=== PATIENT | female | born 1950 | race Caucasian/White ===

== ENCOUNTER → 2016-10-07 | Outpatient (CLI) | payer MEDICARE ==
--- NOTE | 2016-10-08 09:05 | MM ---
Reason for exam: screening (asymptomatic). Last mammogram was performed 1 year ago. History: Patient is postmenopausal. Family history of breast cancer in sister at age 60 and breast cancer in paternal grandmother. Took hormonal contraceptives for 8 years. Took estrogen for 3 years. Physical Findings: A clinical breast exam by your physician is recommended on an annual basis and results should be correlated with mammographic findings. MG 3D Screening Mammo W/Cad Bilateral CC and MLO view(s) were taken. Prior study comparison: October 06, 2015, bilateral MG 3d screening mammo w/cad. October 02, 2014, bilateral MG screening mammo w CAD. There are scattered fibroglandular densities. Finding: There are typically benign calcifications. No significant changes in finding since October 06, 2015 and October 02, 2014. ASSESSMENT: Benign, BI-RAD 2 RECOMMENDATION: Routine screening mammogram of both breasts in 1 year.
== END | disposition home or self-care (01) ==
LOC: RADMAMWWP 11:24
PROVIDERS: ATTEND Family Medicine
DX: Z12.31 Encounter for screening mammogram for malignant neoplasm of breast (principal)
CPT/HCPCS: 77063; G0202

== ENCOUNTER → 2017-10-11 | Outpatient (CLI) | payer MEDICARE ==
--- NOTE | 2017-10-12 12:34 | MM ---
Reason for exam: screening (asymptomatic). Last mammogram was performed 1 year ago. History: Patient is postmenopausal. Family history of breast cancer in sister at age 60 and breast cancer in paternal grandmother. Took hormonal contraceptives for 8 years. Took estrogen for 3 years. Physical Findings: A clinical breast exam by your physician is recommended on an annual basis and results should be correlated with mammographic findings. MG 3D Screening Mammo W/Cad Bilateral CC and MLO view(s) were taken. Prior study comparison: October 07, 2016, bilateral MG 3d screening mammo w/cad. October 06, 2015, bilateral MG 3d screening mammo w/cad. There are scattered fibroglandular densities. Stable benign calcifications. There is no discrete abnormality. No significant changes when compared with prior studies. ASSESSMENT: Benign, BI-RAD 2 RECOMMENDATION: Routine screening mammogram of both breasts in 1 year.
== END | disposition home or self-care (01) ==
LOC: RADMAMWWP 16:49
PROVIDERS: ATTEND Family Medicine
DX: Z12.31 Encounter for screening mammogram for malignant neoplasm of breast (principal)
CPT/HCPCS: 77063; 77067

== ENCOUNTER → 2018-11-22 | Outpatient (CLI) | payer MEDICARE ==
--- NOTE | 2018-11-24 07:41 | MM ---
Reason for exam: screening (asymptomatic). Last mammogram was performed 1 year and 1 month ago. History: Patient is postmenopausal. Family history of breast cancer in sister at age 60 and breast cancer in paternal grandmother. Took hormonal contraceptives for 8 years. Took estrogen for 3 years. Physical Findings: A clinical breast exam by your physician is recommended on an annual basis and results should be correlated with mammographic findings. MG 3D Screening Mammo W/Cad Bilateral CC and MLO view(s) were taken. Prior study comparison: October 11, 2017, bilateral MG 3d screening mammo w/cad. October 07, 2016, bilateral MG 3d screening mammo w/cad. There are scattered fibroglandular densities. Benign appearing bilateral calcifications. No suspicious abnormality. No significant changes when compared with prior studies. ASSESSMENT: Benign, BI-RAD 2 RECOMMENDATION: Routine screening mammogram of both breasts in 1 year.
== END | disposition home or self-care (01) ==
LOC: RADMAMWWP 12:29
PROVIDERS: ATTEND Family Medicine
DX: Z12.31 Encounter for screening mammogram for malignant neoplasm of breast (principal)
CPT/HCPCS: 77063; 77067

== ENCOUNTER → 2019-12-12 | Outpatient (CLI) | payer MEDICARE ==
--- NOTE | 2019-12-13 14:43 | MM ---
Reason for exam: screening (asymptomatic). Last mammogram was performed 1 year and 1 month ago. History: Patient is postmenopausal. Family history of breast cancer in sister at age 60 and breast cancer in paternal grandmother. Took hormonal contraceptives for 8 years. Took estrogen for 3 years. Physical Findings: A clinical breast exam by your physician is recommended on an annual basis and results should be correlated with mammographic findings. MG 3D Screening Mammo W/Cad Bilateral CC and MLO view(s) were taken. Prior study comparison: November 22, 2018, bilateral MG 3d screening mammo w/cad. October 11, 2017, bilateral MG 3d screening mammo w/cad. There are scattered fibroglandular densities. Focal asymmetry right breast is stable. No significant changes when compared with prior studies. ASSESSMENT: Benign, BI-RAD 2 RECOMMENDATION: Routine screening mammogram of both breasts in 1 year.
== END | disposition home or self-care (01) ==
LOC: RADMAMWWP 16:11
PROVIDERS: ATTEND Family Medicine
DX: Z12.31 Encounter for screening mammogram for malignant neoplasm of breast (principal)
CPT/HCPCS: 77063; 77067

== ENCOUNTER → 2020-12-12 | Outpatient (CLI) | payer MEDICARE ==
--- NOTE | 2020-12-15 09:21 | MM ---
Reason for exam: screening (asymptomatic). Last mammogram was performed 1 year ago. History: Patient is postmenopausal. Family history of breast cancer in sister at age 60 and breast cancer in paternal grandmother. Took hormonal contraceptives for 8 years. Took estrogen for 3 years. Physical Findings: A clinical breast exam by your physician is recommended on an annual basis and results should be correlated with mammographic findings. MG 3D Screening Mammo W/Cad Bilateral CC and MLO view(s) were taken. Prior study comparison: December 12, 2019, bilateral MG 3d screening mammo w/cad. November 22, 2018, bilateral MG 3d screening mammo w/cad. There are scattered fibroglandular densities. Stable benign calcifications. There is no discrete abnormality. No significant changes when compared with prior studies. ASSESSMENT: Benign, BI-RAD 2 RECOMMENDATION: Routine screening mammogram of both breasts in 1 year.
== END | disposition home or self-care (01) ==
LOC: RADMAMWWP 09:54
PROVIDERS: ATTEND Family Medicine
DX: Z12.31 Encounter for screening mammogram for malignant neoplasm of breast (principal); Z78.0 Asymptomatic menopausal state; Z80.3 Family history of malignant neoplasm of breast
CPT/HCPCS: 77063; 77067

== ENCOUNTER → 2021-12-14 | Outpatient (CLI) | payer MEDICARE ==
--- NOTE | 2021-12-15 08:52 | MM ---
Reason for Exam: Screening (asymptomatic). Last screening mammogram was performed 12 month(s) ago. Patient History: Menarche at age 8. First Full-Term at age 19. Left ovary removed at age 47. Right ovary removed at age 47. Hysterectomy at age 47. Postmenopausal. Patient used Estrogen for 3 years. Patient used Hormonal Contraceptives for 8 years. Paternal grandmother had breast cancer. Sister had breast cancer, age 60. Risk Values: Archana 5 year model risk: 3.7%. NCI Lifetime model risk: 9.4%. Prior Study Comparison: 11/22/2018 Bilateral Screening Mammogram, [facility]. 12/12/2019 Bilateral Screening Mammogram, [facility]. 12/12/2020 Bilateral Screening Mammogram, [facility]. Tissue Density: There are scattered fibroglandular densities. Findings: Analyzed By CAD. There is no suspicious group of microcalcifications or new suspicious mass in either breast. Stable benign calcifications. No significant change from prior exams. Overall Assessment: Benign, BI-RAD 2 Management: Screening Mammogram of both breasts in 1 year. A clinical breast exam by your physician is recommended on an annual basis and results should be correlated with mammographic findings. Electronically signed and approved by: Zhang Hall D.O.
== END | disposition home or self-care (01) ==
LOC: RADMAMWWP 10:11
PROVIDERS: ATTEND Family Medicine
DX: Z12.31 Encounter for screening mammogram for malignant neoplasm of breast (principal); Z78.0 Asymptomatic menopausal state; Z80.3 Family history of malignant neoplasm of breast
CPT/HCPCS: 77063; 77067

== ENCOUNTER → 2022-12-15 | Outpatient (CLI) | payer MEDICARE ==
--- NOTE | 2022-12-16 10:09 | MM ---
Reason for Exam: Screening (asymptomatic). Last screening mammogram was performed 12 month(s) ago. Patient History: Menarche at age 8. First Full-Term at age 19. Left ovary removed at age 47. Right ovary removed at age 47. Hysterectomy at age 47. Postmenopausal. Patient used Estrogen for 3 years. Patient used Hormonal Contraceptives for 8 years. Paternal grandmother had breast cancer. Sister had breast cancer, age 60. Risk Values: Archana 5 year model risk: 3.7%. NCI Lifetime model risk: 8.9%. Prior Study Comparison: 12/12/2019 Bilateral Screening Mammogram, [facility]. 12/12/2020 Bilateral Screening Mammogram, [facility]. 12/14/2021 Bilateral MG 3D screening mammo w/cad, [facility]. Tissue Density: There are scattered fibroglandular densities. Findings: Analyzed By CAD. There is no suspicious group of microcalcifications or new suspicious mass in either breast. Benign bilateral calcifications. Overall Assessment: Benign, BI-RAD 2 Management: Screening Mammogram of both breasts in 1 year. . Patient should continue monthly self-breast exams. A clinical breast exam by your physician is recommended on an annual basis. This exam should not preclude additional follow-up of suspicious palpable abnormalities. Note on Archana scores and lifetime risk: 1. A Archana score greater than 3% is considered moderate risk. If this is the case, consider specialist referral to assess eligibility for a risk reducing agent. 2. If overall lifetime risk for the development of breast cancer is 20% or higher, the patient may qualify for future screening with alternating mammogram and breast MRI. Electronically signed and approved by: Armando Zapata M.D. Radiologis
== END | disposition home or self-care (01) ==
LOC: RADMAMWWP 10:58
PROVIDERS: ATTEND Family Medicine
DX: Z12.31 Encounter for screening mammogram for malignant neoplasm of breast (principal); Z80.3 Family history of malignant neoplasm of breast; Z78.0 Asymptomatic menopausal state
CPT/HCPCS: 77063; 77067

== ENCOUNTER 2023-10-18 10:07 | Observation (INO) | payer MEDICARE ==
--- NOTE | 2023-10-18 11:20 | XR ---
EXAMINATION TYPE: XR chest 2V DATE OF EXAM: 10/18/2023 COMPARISON: NONE TECHNIQUE: PA and lateral views submitted. HISTORY: Pain FINDINGS: The lungs are clear and there is no pneumothorax, pleural effusion, or focal pneumonia. Heart size normal and no overt failure. Osseous structures demonstrate hypertrophic and degenerative changes of the spine. Linear scarring or atelectasis left lung base. IMPRESSION: 1. No acute process.
--- NOTE | 2023-10-18 11:24 | ED ---
General Adult HPI - General Chief complaint: Chest Pain Stated complaint: SOB/Dizziness Time Seen by Provider: 10/18/23 10:16 Source: patient Mode of arrival: ambulatory Limitations: no limitations - History of Present Illness Initial comments: Dictation was produced using [employer] dictation software. please excuse any grammatical, word or spelling errors. Chief Complaint: 73-year-old female past medical history of osteoarthritis and thyroid disease presents to the ER for chest pain History of Present Illness: Patient 73-year-old female she states that she is having some chest heaviness. Patient states that the symptoms are nonradiating. Not associate with diaphoresis or nausea. She does have extensive family history. States that 2 of her brothers both had heart attacks. The ROS documented in this emergency department record has been reviewed and confirmed by me. Those systems with pertinent positive or negative responses have been documented in the HPI. All other systems are other negative and/or noncontributory. - Related Data Home Medications Medication Instructions Recorded Confirmed Acetaminophen [Tylenol Arthritis] 1,300 mg PO BID 10/18/23 10/18/23 Atorvastatin [Lipitor] 40 mg PO HS 10/18/23 10/18/23 Celecoxib [CeleBREX] 200 mg PO DAILY 10/18/23 10/18/23 Escitalopram [Lexapro] 20 mg PO DAILY 10/18/23 10/18/23 Levothyroxine Sodium [Synthroid] 88 mcg PO DAILY 10/18/23 10/18/23 Loratadine [Claritin] 10 mg PO DAILY 10/18/23 10/18/23 Pregabalin [Lyrica] 50 mg PO BID 10/18/23 10/18/23 traMADol HCL 100 mg PO BID PRN 10/18/23 10/18/23 traZODone HCL [Desyrel] 50 mg PO HS 10/18/23 10/18/23 Allergies Allergy/AdvReac Type Severity Reaction Status Date / Time meclofenamic acid Allergy Rash/Hives Verified 10/18/23 11:16 [From Meclomen] Review of Systems ROS Statement: Those systems with pertinent positive or pertinent negative responses have been documented in the HPI. ROS Other: All systems not noted in ROS Statement are negative. Past Medical History Past Medical History: Osteoarthritis (OA), Thyroid Disorder History of Any Multi-Drug Resistant Organisms: None Reported Additional Past Surgical History / Comment(s): right knee replacement, right shoulder repair, knuckle replacement Past Psychological History: No Psychological Hx Reported Smoking Status: Never smoker Past Alcohol Use History: None Reported Past Drug Use History: None Reported General Exam - General Exam Comments Initial Comments: PHYSICAL EXAM: General Impression: Alert and oriented x3, not in acute distress HEENT: Normocephalic atraumatic, extra-ocular movements intact, pupils equal and reactive to light bilaterally, mucous membranes moist. Cardiovascular: Heart regular rate and rhythm Chest: Able to complete full sentences, no retractions, no tachypnea Abdomen: abdomen soft, non-tender, non-distended, no organomegaly Musculoskeletal: Pulses present and equal in all extremities, no peripheral ed marcela Motor: no focal deficits noted Neurological: CN II-XII grossly intact, no focal motor or sensory deficits noted Skin: Intact with no visualized rashes Psych: Normal affect and mood Limitations: no limitations Course Vital Signs 10/18/23 10/18/23 10/18/23 10:08 10:29 12:52 Temperature 98.1 F Pulse Rate 65 51 L Pulse Rate [ 56 L Chain Builder ] Respiratory 18 18 Rate Blood Pressure 137/67 138/83 O2 Sat by Pulse 97 Oximetry EKG Findings - EKG Comments: EKG Findings:: My EKG interpretation: Ventricular rate 52, sinus bradycardia,. 160, cures 86, QTc 413. No ME prolongation, no QTC prolongation, no ST or T-wave changes noted. Overall, this EKG is unremarkable Medical Decision Making - Medical Decision Making Was pt. sent in by a medical professional or institution (, PA, SITE MANAGER, urgent care, hospital, or senior care...) When possible be specific @ -No Did you speak to anyone other than the patient for history (EMS, parent, family, police, friend...)? What history was obtained from this source @ -No Did you review nursing and triage notes (agree or disagree)? Why? @ -I reviewed and agree with nursing and triage notes Were old charts reviewed (outside hosp., previous admission, EMS record, old EKG, old radiological studies, urgent care reports/EKG's, senior care records)? Report findings @ -No old charts were reviewed Differential Diagnosis (chest pain, altered mental status, abdominal pain women, abdominal pain men, vaginal bleeding, musculoskeletal, weakness, fever, dyspnea, syncope, headache, dizziness, GI bleed, back pain, seizure, CVA, palpatations, mental health)? @ -Differential Chest Pain: Stable Angina, Unstable Angina, STEMI, NSTEMI Aortic Dissection, Pneumothorax, Musculoskeletal, Esophageal Spasm GERD, Cholecystitis, Pancreatitis, Zoster, this is not meant to be an all-inclusive list. EKG interpreted by me (3pts min.). @ -See above X-rays interpreted by me (1pt min.). @ -Chest x-ray shows no acute processes CT interpreted by me (1pt min.). @ -None done U/S interpreted by me (1pt. min.). @ -None done What testing was considered but not performed or refused? (CT, X-rays, U/S, labs)? Why? @ -None What meds were considered but not given or refused? Why? @ -None Was smoking cessation discussed for >3mins.? @ -No Were there social determinants of health that impacted care today? How? (Homelessness, low income, unemployed, alcoholism, drug addiction, transportation, low edu. Level, literacy, decrease access to med. care, penitentiary, rehab)? @ -No Was there de-escalation of care discussed even if they declined (Discuss DNR or withdrawal of care, Hospice)? DNR status @ -No What co-morbidities impacted this encounter? (DM, HTN, Smoking, COPD, CAD, Cancer, CVA, ARF, Chemo, Hep., AIDS, mental health diagnosis, sleep apnea, morbid obesity)? @ -None Was patient admitted / discharged? Hospital course, mention meds given and route, prescriptions, significant lab abnormalities, going to OR and other pertinent info. @ -73-year-old female with chest heaviness. Vital signs stable. EKG is unremarkable. Patient has significant family history. Labs are unremarkable. Disposition options were discussed she is agreeable with observation admission with consultation cardiology. Patient given aspirin. Did you discuss the management of the patient with other professionals (professionals i.e. , PA, SITE MANAGER, lab, RT, psych nurse, social research assistant, rescue boat operator, teacher, chief credit officer, rn case mgr)? Give summary @ -Case discussed with hospitalist for admission Was critical care preformed (if so, how long)? @ -No Undiagnosed new problem with uncertain prognosis? @ -No Drug Therapy requiring intensive monitoring for toxicity (Heparin, Nitro, Insulin, Cardizem)? @ -No Were any procedures done? @ -No Diagnosis/symptom? Acute, or Chronic, or Acute on Chronic? Uncomplicated (without systemic symptoms) or Complicated (systemic symptoms)? @ -Chest pain Side effects of treatment? @ -No Exacerbation, Progression, or Severe Exacerbation? @ -No Poses a threat to life or bodily function? How? (Chest pain, [place], [place], pneumonia, PE, COPD, DKA, ARF, appy, cholecystitis, CVA, Diverticulitis, Homicidal, Suicidal, threat to staff... and all critical care pts) @ -yes - Lab Data Result diagrams: 10/18/23 10:37 10/18/23 12:20 Lab Results 10/18/23 10/18/23 10/18/23 Range/Units 10:37 10:37 12:20 WBC 7.6 (3.8-10.6) k/uL RBC 4.33 (3.80-5.40) m/uL Hgb 13.5 (11.4-16.0) gm/dL Hct 42.2 (34.0-46.0) % MCV 97.5 (80.0-100.0) fL MCH 31.1 (25.0-35.0) pg MCHC 31.9 (31.0-37.0) g/dL RDW 12.8 (11.5-15.5) % Plt Count 388 (150-450) k/uL MPV 7.3 Neutrophils % 69 % Lymphocytes % 21 % Monocytes % 4 % Eosinophils % 3 % Basophils % 1 % Neutrophils # 5.2 (1.3-7.7) k/uL Lymphocytes # 1.6 (1.0-4.8) k/uL Monocytes # 0.3 (0-1.0) k/uL Eosinophils # 0.3 (0-0.7) k/uL Basophils # 0.1 (0-0.2) k/uL Hypochromasia Slight PT 10.1 (10.0-12.5) sec INR 0.9 (<1.2) APTT 22.9 (22.0-30.0) sec Sodium 140 (137-145) mmol/L Potassium 4.9 (3.5-5.1) mmol/L Chloride 111 H (98-107) mmol/L Carbon Dioxide 23 (22-30) mmol/L Anion Gap 6 mmol/L BUN 23 H (7-17) mg/dL Creatinine 0.56 (0.52-1.04) mg/dL Est GFR (CKD-EPI)AfAm >90 (>60 ml/min/1.73 sqM) Est GFR (CKD-EPI)NonAf >90 (>60 ml/min/1.73 sqM) Glucose 89 (74-99) mg/dL Calcium 8.9 (8.4-10.2) mg/dL Magnesium 2.2 (1.6-2.3) mg/dL Total Bilirubin 0.6 (0.2-1.3) mg/dL AST 36 (14-36) U/L ALT 22 (4-34) U/L Alkaline Phosphatase 65 (38-126) U/L Troponin I (0.000-0.034) ng/mL Total Protein 6.5 (6.3-8.2) g/dL Albumin 4.0 (3.5-5.0) g/dL 10/18/23 Range/Units 12:20 WBC (3.8-10.6) k/uL RBC (3.80-5.40) m/uL Hgb (11.4-16.0) gm/dL Hct (34.0-46.0) % MCV (80.0-100.0) fL MCH (25.0-35.0) pg MCHC (31.0-37.0) g/dL RDW (11.5-15.5) % Plt Count (150-450) k/uL MPV Neutrophils % % Lymphocytes % % Monocytes % % Eosinophils % % Basophils % % Neutrophils # (1.3-7.7) k/uL Lymphocytes # (1.0-4.8) k/uL Monocytes # (0-1.0) k/uL Eosinophils # (0-0.7) k/uL Basophils # (0-0.2) k/uL Hypochromasia PT (10.0-12.5) sec INR (<1.2) APTT (22.0-30.0) sec Sodium (137-145) mmol/L Potassium (3.5-5.1) mmol/L Chloride (98-107) mmol/L Carbon Dioxide (22-30) mmol/L Anion Gap mmol/L BUN (7-17) mg/dL Creatinine (0.52-1.04) mg/dL Est GFR (CKD-EPI)AfAm (>60 ml/min/1.73 sqM) Est GFR (CKD-EPI)NonAf (>60 ml/min/1.73 sqM) Glucose (74-99) mg/dL Calcium (8.4-10.2) mg/dL Magnesium (1.6-2.3) mg/dL Total Bilirubin (0.2-1.3) mg/dL AST (14-36) U/L ALT (4-34) U/L Alkaline Phosphatase (38-126) U/L Troponin I <0.012 (0.000-0.034) ng/mL Total Protein (6.3-8.2) g/dL Albumin (3.5-5.0) g/dL Disposition Clinical Impression: Chest pain Disposition: ADMITTED IP TO THIS HOSP Condition: Fair Referrals: Park Ramos DO [Primary Care Provider] - 1-2 days Decision Time: 13:00
[2023-10-18 11:26] LABS: Basophils # (A) 0.1 k/uL (0-0.2); Basophils % (A) 1 %; Eosinophils # (A) 0.3 k/uL (0-0.7); Eosinophils % (A) 3 %; HCT 42.2 % (34.0-46.0); HGB 13.5 gm/dL (11.4-16.0); Hypochromasia Slight; Lymphocytes # (A) 1.6 k/uL (1.0-4.8); Lymphocytes % (A) 21 %; MCH 31.1 pg (25.0-35.0); MCHC 31.9 g/dL (31.0-37.0); MCV 97.5 fL (80.0-100.0); Mean Platelet Volume 7.3; Monocytes # (A) 0.3 k/uL (0-1.0); Monocytes % (A) 4 %; Neutrophils # (A) 5.2 k/uL (1.3-7.7); Neutrophils % (A) 69 %; Platelet Count 388 k/uL (150-450); RBC 4.33 m/uL (3.80-5.40); RDW 12.8 % (11.5-15.5); WBC 7.6 k/uL (3.8-10.6)
[2023-10-18 12:11] LABS: INR 0.9 (<1.2); Partial Thromboplastin Time 22.9 sec (22.0-30.0); Prothrombin Time 10.1 sec (10.0-12.5)
[2023-10-18 13:05] LABS: ALT 22 U/L (4-34); AST 36 U/L (14-36); African American GFR (CKD) >90 (>60 ml/min/1.73 sqM); Alkaline Phosphatase 65 U/L (38-126); Anion Gap 6 mmol/L; Blood Urea Nitrogen 23 mg/dL (7-17); Calcium 8.9 mg/dL (8.4-10.2); Carbon Dioxide 23 mmol/L (22-30); Chloride 111 mmol/L (98-107); Glucose 89 mg/dL (74-99); Magnesium 2.2 mg/dL (1.6-2.3); Non-African American GFR(CKD) >90 (>60 ml/min/1.73 sqM); Sodium 140 mmol/L (137-145); Total Bilirubin 0.6 mg/dL (0.2-1.3); Total Protein 6.5 g/dL (6.3-8.2)
[2023-10-18 13:11] LABS: Potassium 4.9 mmol/L (3.5-5.1)
[2023-10-18] MEDS ORDERED: NITROGLYCERIN SL TABS 0.4 MG TAB SUBLINGUAL PRN (13:33)
[2023-10-18] MEDS: ASPIRIN 81 MG PO STA (14:08)
[2023-10-18] MEDS ORDERED: traMADol 50 MG TAB PO PRN (14:42)
--- NOTE | 2023-10-18 14:45 | P.HPIM ---
History of Present Illness H&P Date: 10/18/23 History of present illness; patient 73-year-old lady with past medical significant for hyperlipidemia, hypothyroidism presented to ER because of chest pain. Patient stated that she was all right this morning when she woke up with chest pain that was central location, nonradiating, pressure-like, no aggravating or relieving factor associated with chest pain. Patient denies any shortness of breath. There is no complaint of orthopnea or PND at the time. Patient was complaining of dizziness. Because of chest pain, patient came to the ER Initial lab work done in the ER showed WBC 7.6, hemoglobin 13.5, platelet count 388, sodium 140, potassium 4.9, BUN 23, creatinine 0.56, glucose 89, calcium 8.9, AST 36, ALT 22, troponin 0.012 EKG done in the ER showed heart rate of52 , no ST segment elevation or depression seen, no T-wave inversions seen. Chest x-ray done in the ER showed no acute cardiopulmonary process Patient admitted to internal medicine service REVIEW OF SYSTEMS: CONSTITUTIONAL: No fever, no malaise, no fatigue. HEENT: No recent visual problems or hearing problems. Denied any sore throat. CARDIOVASCULAR: As mentioned above PULMONARY: As mentioned above GASTROINTESTINAL: No diarrhea, no nausea, no vomiting, no abdominal pain. NEUROLOGICAL: No headaches, no weakness, no numbness. HEMATOLOGICAL: Denies any bleeding or petechiae. GENITOURINARY: Denies any burning micturition, frequency, or urgency. MUSCULOSKELETAL/RHEUMATOLOGICAL: Denies any joint pain, swelling, or any muscle pain. ENDOCRINE: Denies any polyuria or polydipsia. The rest of the 14-point review of systems is negative. PHYSICAL EXAMINATION: GENERAL: The patient is alert and oriented x3, not in any acute distress. Well developed, well nourished. HEENT: Pupils are round and equally reacting to light. EOMI. No scleral icterus. No conjunctival pallor. Normocephalic, atraumatic. No pharyngeal erythema. No thyromegaly. CARDIOVASCULAR: S1 and S2 present. No murmurs, rubs, or gallops. PULMONARY: Chest is clear to auscultation, no wheezing or crackles. ABDOMEN: Soft, nontender, nondistended, normoactive bowel sounds. No palpable organomegaly. MUSCULOSKELETAL: No joint swelling or deformity. EXTREMITIES: No cyanosis, clubbing, or pedal edema. NEUROLOGICAL: Gross neurological examination did not reveal any focal deficits. SKIN: No rashes. Assessment and plan Chest pain, rule out acute coronary syndrome Hypothyroidism Hyperlipidemia Depression Monitor vital signs Monitor CBC Monitor CMP Continue telemetry monitoring Ordered serial troponin Ordered serial EKGs Ordered 2D echo Order D-dimer Ordered lipid panel ordered HbA1c level Resume home medicine consult cardiology Labs and medication were reviewed.. Continue same treatment. Continue with symptomatic treatment. Resume home medication. Monitor labs and vitals. DVT and GI prophylaxis. Further recommendations as per clinical course of the patient Dictation was produced using [employer] dictation software. please excuse any grammatical, word or spelling errors. Past Medical History Past Medical History: Osteoarthritis (OA), Thyroid Disorder History of Any Multi-Drug Resistant Organisms: None Reported Additional Past Surgical History / Comment(s): right knee replacement, right shoulder repair, knuckle replacement Past Psychological History: No Psychological Hx Reported Smoking Status: Never smoker Past Alcohol Use History: None Reported Past Drug Use History: None Reported Medications and Allergies Home Medications Medication Instructions Recorded Confirmed Type Acetaminophen [Tylenol Arthritis] 1,300 mg PO BID 10/18/23 10/18/23 History Atorvastatin [Lipitor] 40 mg PO HS 10/18/23 10/18/23 History Celecoxib [CeleBREX] 200 mg PO DAILY 10/18/23 10/18/23 History Escitalopram [Lexapro] 20 mg PO DAILY 10/18/23 10/18/23 History Levothyroxine Sodium [Synthroid] 88 mcg PO DAILY 10/18/23 10/18/23 History Loratadine [Claritin] 10 mg PO DAILY 10/18/23 10/18/23 History Pregabalin [Lyrica] 50 mg PO BID 10/18/23 10/18/23 History traMADol HCL 100 mg PO BID PRN 10/18/23 10/18/23 History traZODone HCL [Desyrel] 50 mg PO HS 10/18/23 10/18/23 History Allergies Allergy/AdvReac Type Severity Reaction Status Date / Time meclofenamic acid Allergy Rash/Hives Verified 10/18/23 11:16 [From Meclomen] Physical Exam Vitals: Vital Signs Temp Pulse Pulse Resp BP Pulse Ox 10/18/23 12:52 51 L 18 138/83 10/18/23 10:29 56 L 10/18/23 10:08 98.1 F 65 18 137/67 97 Intake and Output 10/17/23 10/18/23 10/18/23 22:59 06:59 14:59 Other: Weight 81.647 kg Results CBC & Chem 7: 10/18/23 10:37 10/18/23 12:20 Labs: Abnormal Lab Results - Last 24 Hours (Table) 10/18/23 Range/Units 12:20 Chloride 111 H (98-107) mmol/L BUN 23 H (7-17) mg/dL
--- NOTE | 2023-10-18 17:28 | CA ---
Transthoracic Echo Report Name: Chel Kennedy Age: 73 Gender: F : 1950 Exam Date: 10/18/2023 15:30 Exam Location: [facility] Ht (in): 60 Wt (lb): 180 Ordering Physician: Trevin Arshad MD Attending/Referring Phys: Oak Tanner Sunni Vinson RDCS Procedure CPT: Indications: Chest Pain Cardiac Hx: Technical Quality: Good Contrast 1: Total Dose (mL): Contrast 2: Total Dose (mL): MEASUREMENTS (Male / Female) Normal Values 2D ECHO LV Diastolic Diameter PLAX 4.3 cm 4.2 - 5.9 / 3.9 - 5.3 cm LV Systolic Diameter PLAX 2.6 cm IVS Diastolic Thickness 1.0 cm 0.6 - 1.0 / 0.6 - 0.9 cm LVPW Diastolic Thickness 0.9 cm 0.6 - 1.0 / 0.6 - 0.9 cm LV Relative Wall Thickness 0.4 RV Internal Dim ED PLAX 3.0 cm LA Systolic Diameter LX 4.1 cm 3.0 - 4.0 / 2.7 - 3.8 cm LV Diastolic Volume MOD 4C 101.0 cm??? LV Systolic Volume MOD 4C 42.5 cm??? LV Ejection Fraction MOD 4C 58.0 % LV Cardiac Index MOD 4C 1911.5 cm???/min???m??? LV Diastolic Length 4C 7.5 cm LV Systolic Length 4C 6.0 cm LV Diastolic Volume MOD 2C 79.1 cm??? LV Systolic Volume MOD 2C 31.4 cm??? LV Ejection Fraction MOD 2C 60.3 % LV Cardiac Index MOD 2C 1555.9 cm???/min???m??? LV Diastolic Length 2C 7.0 cm LV Systolic Length 2C 5.4 cm LA Volume 45.2 cm??? 18 - 58 / 22 - 52 cm??? LA Volume Index 23.8 cm???/m??? 16 - 28 cm???/m??? M-MODE Aortic Root Diameter MM 3.0 cm AV Cusp Separation MM 1.8 cm DOPPLER AV Peak Velocity 140.5 cm/s AV Peak Gradient 7.9 mmHg AV Mean Velocity 91.0 cm/s AV Mean Gradient 3.8 mmHg AV Velocity Time Integral 33.2 cm MV Area PHT 3.6 cm??? Mitral E Point Velocity 96.6 cm/s Mitral A Point Velocity 107.4 cm/s Mitral E to A Ratio 0.9 MV Deceleration Time 212.4 ms TR Peak Velocity 215.5 cm/s TR Peak Gradient 18.6 mmHg Right Ventricular Systolic Press 23.2 mmHg FINDINGS Left Ventricle Left ventricular ejection fraction is estimated at 55-60 %. Left ventricular cavity size normal. Left ventricular wall thickness normal. Normal left ventricular wall motion. Right Ventricle Normal right ventricular size and function. Right ventricular systolic pressure within normal limits. Right Atrium Normal right atrial size. No right atrial thrombus or mass seen. Left Atrium Mildly increased left atrial diameter. No left atrial thrombus or mass present. Mitral Valve Mitral valve thickened. Mitral annular calcification. Trace mitral regurgitation. Aortic Valve Trileaflet aortic valve. Thickened aortic valve without stenosis. No aortic regurgitation. Tricuspid Valve Structurally normal tricuspid valve. Trace to mild tricuspid regurgitation. Pulmonic Valve Structurally normal pulmonic valve. No pulmonic regurgitation. Pericardium No pericardial effusion. No pleural effusion. Aorta Normal size aortic root and proximal ascending aorta. CONCLUSIONS Normal LV function Previewed by: Dr. Gino De Leon MD (Electronically Signed) Final Date: 18 October 2023 17:27
[2023-10-18] MEDS: ATORVASTATIN 40 MG TAB PO SCH (20:25)
[2023-10-18] MEDS: PREGABALIN 50 MG CAP PO SCH (20:25)
[2023-10-18] MEDS: traZODone HCL 50 MG TAB PO SCH (20:25)
[2023-10-19] MEDS: LEVOTHYROXINE 88 MCG TAB PO SCH (05:05)
[2023-10-19] MEDS ORDERED: DOBUTamine DRIP for NUC MED 500 MG in DEXTROSE/WATER 1 250ML.BAG IV PRN (08:01)
[2023-10-19 08:31] LABS: Basophils # (A) 0.07 X 10*3/uL (0.00-0.10); Basophils % (A) 0.7 %; Eosinophils # (A) 0.31 X 10*3/uL (0.04-0.35); Eosinophils % (A) 3.3 %; HCT 38.4 % (37.2-46.3); HGB 12.2 g/dL (12.0-15.0); Lymphocytes # (A) 2.77 X 10*3/uL (0.90-5.00); Lymphocytes % (A) 29.3 %; MCH 30.5 pg (27.0-32.0); MCHC 31.8 g/dL (32.0-37.0); Mean Platelet Volume 10.1 FL (9.5-12.2); Monocytes # (A) 0.72 X 10*3/uL (0.20-1.00); Monocytes % (A) 7.6 %; NRBC Per 100 WBC 0 X 10*3/uL (0.00-0.01); Neutrophils # (A) 5.55 X 10*3/uL (1.80-7.70); Neutrophils % (A) 58.8 %; Platelet Count 338 X 10*3/uL (140-440); WBC 9.45 X 10*3/uL (4.50-10.00)
[2023-10-19] MEDS ORDERED: ASPIRIN 325 MG TAB PO SCH (09:00)
[2023-10-19 09:01] LABS: ALT 19 U/L (8-44); AST 24 U/L (13-35); Albumin 4.1 g/dL (3.8-4.9); Albumin/Globulin Ratio 1.78 Ratio (1.60-3.17); Alkaline Phosphatase 74 U/L (41-126); Blood Urea Nitrogen 24.8 mg/dL (9.0-27.0); Calcium 8.8 mg/dL (8.7-10.3); Carbon Dioxide 22.2 mmol/L (21.6-31.8); Chloride 107 mmol/L (96-109); Chol/HDL Ratio 4.47 Ratio; Globulin 2.3 g/dL (1.6-3.3); Glucose 104 mg/dL (70-110); LDL Cholesterol,Calculated 104.6 mg/dL (0.0-131.0); Potassium 4.5 mmol/L (3.5-5.5); Sodium 142 mmol/L (135-145); Total Bilirubin 0.2 mg/dL (0.3-1.2); Total Protein 6.4 g/dL (6.2-8.2)
[2023-10-19] MEDS: ASPIRIN 81 MG PO SCH (09:24)
--- NOTE | 2023-10-19 09:35 | P.CRDCN ---
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 She has a past medical history of hyperlipidemia, hypothyroidism. She denies history of hypertension or diabetes. She is a non-smoker. We have been asked to evaluate the patient for chest pain. She states she woke up with pressure and feeling lightheaded and thought she was having a panic attack. She states she still have some pressure in her chest. Blood pressure 148/71, heart rate 59, pulse ox 100% on room air. Just crossed testing options with the patient and if she is agreeable to move forward with stress test today. EKG: Normal sinus rhythm with no acute ST-T wave changes. Chest x-ray: No acute process Echocardiogram reveals normal LV function Laboratory studies: WBC 9.4, hemoglobin 12.2. Electrolytes are normal. BUN 24 creatinine 0.8. Troponin negative x 3. Triglycerides 168, cholesterol 178, LDL 104, HDL 39. Home cardiac medications: Atorvastatin 40 mg at bedtime, also on levothyroxine 88 mcg daily. Review Of Systems: At the time of my exam: CONSTITUTIONAL: Denies fever or chills. HEENT: Denies blurred vision, vision changes, or eye pain. Denies hemoptysis CARDIOVASCULAR: Denies chest pain. Denies orthopnea. Denies PND. Denies palpitations RESPIRATORY: Denies shortness of breath. GASTROINTESTINAL: Denies abdominal pain. Denies nausea or vomiting. HEMATOLOGIC: Denies bleeding disorders. GENITOURINARY: Denies any blood in urine. SKIN: Denies puritis. Denies rash. Physical examination: Gen: This is a 73-year-old female in no acute distress VS: reviewed HEENT: Head is atraumatic, normocephalic. Pupils equal, round. Sclerae is anicteric. NECK: Supple. No JVD. LUNGS: Clear to auscultation. No wheezes or rhonchi. No intercostal retractions. HEART: Regular rate and rhythm. No murmur. ABDOMEN: Soft No tenderness. EXTREMITIES: No pedal edema. No calf tenderness. NEUROLOGICAL: Patient is awake, alert and oriented x3. Assessment: Reproducible chest pain most likely musculoskeletal, acute coronary syndrome has been ruled out Hyperlipidemia Hypothyroidism Plan: Resume patient's home cardiac medications Obtain dobutamine stress test today If stress test is unremarkable, patient is cleared for discharge and may follow- up with Dr. Joelle De Leon in 4 weeks. Discussed with patient if testing comes back abnormal, we will plan for cardiac catheterization. Thank you kindly for this consultation. Nurse practitioner note has been reviewed, I agree with documented findings and plan of care. Patient was seen and examined. Past Medical History Past Medical History: Osteoarthritis (OA), Thyroid Disorder History of Any Multi-Drug Resistant Organisms: None Reported Additional Past Surgical History / Comment(s): right knee replacement, right shoulder repair, knuckle replacement Past Anesthesia/Blood Transfusion Reactions: No Reported Reaction Past Psychological History: No Psychological Hx Reported Smoking Status: Never smoker Past Alcohol Use History: None Reported Past Drug Use History: None Reported Medications and Allergies Home Medications Medication Instructions Recorded Confirmed Type Acetaminophen [Tylenol Arthritis] 1,300 mg PO BID 10/18/23 10/18/23 History Atorvastatin [Lipitor] 40 mg PO HS 10/18/23 10/18/23 History Celecoxib [CeleBREX] 200 mg PO DAILY 10/18/23 10/18/23 History Escitalopram [Lexapro] 20 mg PO DAILY 10/18/23 10/18/23 History Levothyroxine Sodium [Synthroid] 88 mcg PO DAILY 10/18/23 10/18/23 History Loratadine [Claritin] 10 mg PO DAILY 10/18/23 10/18/23 History Pregabalin [Lyrica] 50 mg PO BID 10/18/23 10/18/23 History traMADol HCL 100 mg PO BID PRN 10/18/23 10/18/23 History traZODone HCL [Desyrel] 50 mg PO HS 10/18/23 10/18/23 History Allergies Allergy/AdvReac Type Severity Reaction Status Date / Time meclofenamic acid Allergy Rash/Hives Verified 10/18/23 11:16 [From [facility]] Physical Exam Vitals: Vital Signs Temp Pulse Pulse Pulse Resp BP BP 10/19/23 07:27 97.8 F 59 L 16 148/71 10/19/23 02:00 97.5 F L 63 16 10/19/23 01:20 65 16 10/18/23 21:01 65 16 10/18/23 20:23 69 16 143/100 10/18/23 20:00 97.8 F 65 16 07/23/24 19:30 97.6 F 68 16 10/18/23 17:25 64 18 124/71 10/18/23 14:00 65 59 H 133/72 10/18/23 12:52 51 L 18 138/83 10/18/23 11:00 60 12 144/75 10/18/23 10:30 57 L 50 H 10/18/23 10:29 56 L 10/18/23 10:08 98.1 F 65 18 137/67 BP Pulse Ox 10/19/23 07:27 100 10/19/23 02:00 111/66 93 L 10/19/23 01:20 10/18/23 21:01 10/18/23 20:23 97 10/18/23 20:00 144/66 96 10/18/23 19:30 97 10/18/23 17:25 95 10/18/23 14:00 98 10/18/23 12:52 10/18/23 11:00 10/18/23 10:30 10/18/23 10:29 10/18/23 10:08 97 Intake and Output 10/18/23 10/19/23 10/19/23 22:59 06:59 14:59 Intake Total 120 Balance 120 Intake: Oral 120 Other: # Voids 1 1 Weight 81.647 kg Results 10/19/23 05:42 10/19/23 05:42 Cardiac Enzymes 10/18/23 10/18/23 10/18/23 Range/Units 12:20 12:20 15:57 AST 36 (14-36) U/L Troponin I <0.012 <0.012 (0.000-0.034) ng/mL 10/18/23 Range/Units 18:20 AST (14-36) U/L Troponin I <0.012 (0.000-0.034) ng/mL Coagulation 10/18/23 Range/Units 10:37 PT 10.1 (10.0-12.5) sec APTT 22.9 (22.0-30.0) sec CBC 10/18/23 Range/Units 10:37 WBC 7.6 (3.8-10.6) k/uL RBC 4.33 (3.80-5.40) m/uL Hgb 13.5 (11.4-16.0) gm/dL Hct 42.2 (34.0-46.0) % Plt Count 388 (150-450) k/uL Comprehensive Metabolic Panel 10/18/23 Range/Units 12:20 Sodium 140 (137-145) mmol/L Potassium 4.9 (3.5-5.1) mmol/L Chloride 111 H (98-107) mmol/L Carbon Dioxide 23 (22-30) mmol/L BUN 23 H (7-17) mg/dL Creatinine 0.56 (0.52-1.04) mg/dL Glucose 89 (74-99) mg/dL Calcium 8.9 (8.4-10.2) mg/dL AST 36 (14-36) U/L ALT 22 (4-34) U/L Alkaline Phosphatase 65 (38-126) U/L Total Protein 6.5 (6.3-8.2) g/dL Albumin 4.0 (3.5-5.0) g/dL Current Medications Generic Name Dose Route Start Last Admin Trade Name Freq PRN Reason Stop Dose Admin Aspirin 325 mg 10/19/23 09:00 Aspirin 325 Mg Tab PO DAILY JESSIKA Atorvastatin Calcium 40 mg 10/18/23 21:00 10/18/23 20:25 Atorvastatin 40 Mg Tab PO 40 mg HS JESSIKA Administration Escitalopram Oxalate 20 mg 10/19/23 09:00 Escitalopram 20 Mg Tab PO DAILY [facility] Levothyroxine Sodium 88 mcg 10/19/23 06:30 10/19/23 05:05 Levothyroxine 88 Mcg Tab PO 88 mcg 0630 JESSIKA Administration Loratadine 10 mg 10/19/23 09:00 Loratadine 10 Mg Tab PO DAILY JESSIKA Nitroglycerin 0.4 mg 10/18/23 13:33 Nitroglycerin Sl Tabs 0.4 Mg Tab SUBLINGUAL Q5M PRN Chest Pain Pregabalin 50 mg 10/18/23 21:00 10/18/23 20:25 Pregabalin 50 Mg Cap PO 50 mg BID JESSIKA Administration Tramadol HCl 100 mg 10/18/23 14:42 Tramadol 50 Mg Tab PO BID PRN Pain Trazodone HCl 50 mg 10/18/23 21:00 10/18/23 20:25 Trazodone Hcl 50 Mg Tab PO 50 mg HS JESSIKA Administration Intake and Output 10/18/23 10/19/23 10/19/23 22:59 06:59 14:59 Intake Total 120 Balance 120 Intake: Oral 120 Other: # Voids 1 1 Weight 81.647 kg 10/18/23 10:37 10/18/23 12:20
--- NOTE | 2023-10-19 12:16 | P.PN ---
Subjective Progress Note Date: 10/19/23 patient 73-year-old lady with past medical significant for hyperlipidemia, hypothyroidism presented to ER because of chest pain. Patient stated that she was all right this morning when she woke up with chest pain that was central location, nonradiating, pressure-like, no aggravating or relieving factor a ssociated with chest pain. Patient denies any shortness of breath. There is no complaint of orthopnea or PND at the time. Patient was complaining of dizziness. Because of chest pain, patient came to the ER Initial lab work done in the ER showed WBC 7.6, hemoglobin 13.5, platelet count 388, sodium 140, potassium 4.9, BUN 23, creatinine 0.56, glucose 89, calcium 8.9, AST 36, ALT 22, troponin 0.012 EKG done in the ER showed heart rate of52 , no ST segment elevation or depression seen, no T-wave inversions seen. Chest x-ray done in the ER showed no acute cardiopulmonary process Patient admitted to internal medicine service 10/18. Patient seen and examined. 2D echo done showed normal LV function. Stress test ordered for today REVIEW OF SYSTEMS: CONSTITUTIONAL: No fever, no malaise,. CARDIOVASCULAR: No chest pain, no palpitations, no syncope. PULMONARY: No shortness of breath, no cough, GASTROINTESTINAL: No diarrhea, no nausea, no vomiting, no abdominal pain. NEUROLOGICAL: No headaches, no weakness, PHYSICAL EXAMINATION: GENERAL: The patient is alert and oriented x3, not in any acute distress. Well developed, well nourished. HEENT: Pupils are round and equally reacting to light. EOMI. No scleral icterus. No conjunctival pallor. Normocephalic, atraumatic. No pharyngeal erythema. No thyromegaly. CARDIOVASCULAR: S1 and S2 present. No murmurs, rubs, or gallops. PULMONARY: Chest is clear to auscultation, no wheezing or crackles. ABDOMEN: Soft, nontender, nondistended, normoactive bowel sounds. No palpable organomegaly. MUSCULOSKELETAL: No joint swelling or deformity. EXTREMITIES: No cyanosis, clubbing, or pedal edema. NEUROLOGICAL: Gross neurological examination did not reveal any focal deficits. SKIN: No rashes. Assessment and plan Chest pain, rule out acute coronary syndrome Hypothyroidism Hyperlipidemia Depression Monitor vital signs Monitor CBC Monitor CMP Continue telemetry monitoring Continue aspirin, Lipitor Continue Synthroid Stress test ordered Cardiology following Labs and medication were reviewed.. Continue same treatment. Continue with symptomatic treatment. Resume home medication. Monitor labs and vitals. DVT and GI prophylaxis. Further recommendations as per clinical course of the patient Dictation was produced using [employer] dictation software. please excuse any grammatical, word or spelling errors. Objective - Vital Signs Vital signs: Vital Signs Temp 97.8 F 10/19/23 07:27 Pulse 59 L 10/19/23 07:27 Resp 16 10/19/23 07:27 BP 148/71 10/19/23 07:27 Pulse Ox 100 10/19/23 07:27 FiO2 Intake & Output 10/18/23 10/19/23 10/19/23 18:59 06:59 18:59 Intake Total 120 Balance 120 Weight 81.647 kg 81.647 kg Intake: Oral 120 Other: # Voids 1 - Labs CBC & Chem 7: 10/19/23 05:42 10/19/23 05:42 Labs: Abnormal Lab Results - Last 24 Hours (Table) 10/18/23 10/19/23 10/19/23 Range/Units 12:20 05:42 05:42 RBC 4.00 L (4.10-5.20) X 10*6/uL MCHC 31.8 L (32.0-37.0) g/dL Chloride 111 H (98-107) mmol/L Anion Gap 12.80 H (4.00-12.00) mmol/L BUN 23 H (7-17) mg/dL BUN/Creatinine Ratio 31.00 H (12.00-20.00) Ratio Total Bilirubin 0.2 L (0.3-1.2) mg/dL Triglycerides 168.00 H (0.00-149.00) mg/dL HDL Cholesterol 39.80 L (40.00-60.00) mg/dL
[2023-10-19] MEDS: LORATADINE 10 MG TAB PO SCH (13:23)
[2023-10-19] MEDS: ESCITALOPRAM 20 MG TAB PO SCH (13:23)
[2023-10-19 14:09] VITALS: BP 132/57; PULSE 68; RESP 17; TEMP 97.9
--- NOTE | 2023-10-19 18:12 | CA ---
Dobutamine Stress Echocardiogram Report Chel Kennedy Age: 73 Gender: F : 1950 Exam Date: 10/19/2023 11:56 Exam Location: [facility] Ordering Physician: Tri Carballo Referring Physician: [id number] [employer] Lieutenant: Marianna Pemberton RDCS Technologist: Ht (in): 60 Wt (lb): 180 Procedure CPT: Indication: Chest Pain ICD-9 Codes: Rhythm: Patient History: CHEST PAIN, HYPERCHOLESTEROLEMIA, FAMILY HX OF HEART DISEASE, PRIOR SMOKER Cardiac Medications: Medications in past 24 hours: Contrast: N/A Total Dose (mL): Stress Results Protocol: Dobutamine Peak Dose (???g/kg/min): 40 Duration (min:sec): Atropine:(mg) None Target HR: 124 Double Product: [id number] Resting HR: 59 Resting BP: 151 / 66 Peak HR: 126 Peak BP: 217 / 42 Max Predicted HR: 146 86 % Max Predicted HR Stress Summary: BP Response: Reason for Termination: Target HR Cardiac Symptoms: CHEST PAIN ECG Analysis Resting EKG: Normal sinus rhythm normal axis normal intervals Stress EKG: Patient was given intravenous dobutamine as per protocol achieving 85% of predicted maximal heart rate without chest pain or diagnostic ST segment depression Arrhythmia: Occasional PVCs Echo Analysis Base Echo Analysis: Normal left ventricular size wall motion systolic function Low Echo Anaylsis: Normal Peak Echo Analysis: Normal hyperdynamic response Recovery Echo: Normal MEASUREMENTS (Male/Female) Normal Values CONCLUSIONS Negative dobutamine stress echo Dr. Gino De Leon MD (Electronically Signed) Final Date: 19 October 2023 18:10
--- NOTE | 2023-10-20 10:04 | P.DS ---
Providers Date of admission: 10/18/23 13:35 Expected date of discharge: 10/20/23 Attending physician: Patricio Ramos MD Consults: 10/18/23 13:33 Consult Physician Urgent Consulting Provider: Jac Bowman Consult Reason/Comments: chest pain Do you want consulting provider notified?: Yes Primary care physician: Park Ramos [facility] Course: Discharge diagnoses; Chest pain, acute coronary syndrome ruled out Hypothyroidism Hyperlipidemia Depression Hospital course; patient 73-year-old lady with past medical significant for hyperlipidemia, hypothyroidism presented to ER because of chest pain. Patient stated that she was all right this morning when she woke up with chest pain that was central location, nonradiating, pressure-like, no aggravating or relieving factor associ ated with chest pain. Patient denies any shortness of breath. There is no complaint of orthopnea or PND at the time. Patient was complaining of dizziness. Because of chest pain, patient came to the ER Initial lab work done in the ER showed WBC 7.6, hemoglobin 13.5, platelet count 388, sodium 140, potassium 4.9, BUN 23, creatinine 0.56, glucose 89, calcium 8.9, AST 36, ALT 22, troponin 0.012 EKG done in the ER showed heart rate of52 , no ST segment elevation or depression seen, no T-wave inversions seen. Chest x-ray done in the ER showed no acute cardiopulmonary process Patient admitted to internal medicine service 10/18. Patient seen and examined. 2D echo done showed normal LV function. Dobutamine stress echo done showed negative for ischemia. Cardiology cleared the patient for discharge PHYSICAL EXAMINATION: GENERAL: The patient is alert and oriented x3, not in any acute distress. Well developed, well nourished. HEENT: Pupils are round and equally reacting to light. EOMI. No scleral icterus. No conjunctival pallor. Normocephalic, atraumatic. No pharyngeal erythema. No thyromegaly. CARDIOVASCULAR: S1 and S2 present. No murmurs, rubs, or gallops. PULMONARY: Chest is clear to auscultation, no wheezing or crackles. ABDOMEN: Soft, nontender, nondistended, normoactive bowel sounds. No palpable organomegaly. MUSCULOSKELETAL: No joint swelling or deformity. EXTREMITIES: No cyanosis, clubbing, or pedal edema. NEUROLOGICAL: Gross neurological examination did not reveal any focal deficits. SKIN: No rashes. Dictation was produced using [employer] dictation software. please excuse any grammatical, word or spelling errors. Patient Condition at Discharge: Fair Plan - Discharge Summary Discharge Rx Participant: No New Discharge Prescriptions: New Aspirin 81 mg PO DAILY #30 tab Continue Pregabalin [Lyrica] 50 mg PO BID Escitalopram [Lexapro] 20 mg PO DAILY Atorvastatin [Lipitor] 40 mg PO HS traZODone HCL [Desyrel] 50 mg PO HS traMADol HCL 100 mg PO BID PRN PRN Reason: Pain Loratadine [Claritin] 10 mg PO DAILY Acetaminophen [Tylenol Arthritis] 1,300 mg PO BID Levothyroxine Sodium [Synthroid] 88 mcg PO DAILY Celecoxib [CeleBREX] 200 mg PO DAILY Discharge Medication List Acetaminophen [Tylenol Arthritis] 1,300 mg PO BID 10/18/23 [History] Atorvastatin [Lipitor] 40 mg PO HS 10/18/23 [History] Celecoxib [CeleBREX] 200 mg PO DAILY 10/18/23 [History] Escitalopram [Lexapro] 20 mg PO DAILY 10/18/23 [History] Levothyroxine Sodium [Synthroid] 88 mcg PO DAILY 10/18/23 [History] Loratadine [Claritin] 10 mg PO DAILY 10/18/23 [History] Pregabalin [Lyrica] 50 mg PO BID 10/18/23 [History] traMADol HCL 100 mg PO BID PRN 10/18/23 [History] traZODone HCL [Desyrel] 50 mg PO HS 10/18/23 [History] Aspirin 81 mg PO DAILY #30 tab 10/19/23 [Rx] Follow up Appointment(s)/Referral(s): Park Ramos DO [Primary Care Provider] - 1-2 days Gino De Leon MD [STAFF PHYSICIAN] - 4 Weeks Patient Instructions/Handouts: Chest Pain (DC) Discharge Disposition: HOME SELF-CARE
== END 2023-10-19 18:43 | disposition home or self-care (01) ==
LOC: EC 10:07 → 6NMEDSUR 13:35
PROVIDERS: ADMIT Family Medicine; ATTEND Family Medicine
DX: R07.89 Other chest pain (principal); R42 Dizziness and giddiness; E03.9 Hypothyroidism, unspecified; E78.5 Hyperlipidemia, unspecified; M19.90 Unspecified osteoarthritis, unspecified site; F32.A Depression, unspecified; Z79.1 Long term (current) use of non-steroidal anti-inflammatories (NSAID); Z79.890 Hormone replacement therapy; Z88.6 Allergy status to analgesic agent; Z79.899 Other long term (current) drug therapy; Z82.49 Family history of ischemic heart disease and other diseases of the circulatory system
CPT/HCPCS: 99285; 36415; 93005 ×2; 93306; 93351; 85379; 80061; 80053 ×2; 83735; 84484; 85025 ×2; 85610; 85730; 83036; 71046; G0378 ×2

== ENCOUNTER → 2024-03-29 | Outpatient (CLI) | payer MEDICARE ==
--- NOTE | 2024-04-02 07:56 | MM ---
Reason for Exam: Screening (asymptomatic). Last mammogram was performed 1 year(s) and 4 month(s) ago. Patient History: Menarche at age 8. First Full-Term at age 19. Left ovary removed at age 47. Right ovary removed at age 47. Hysterectomy at age 47. Postmenopausal. Patient used Estrogen for 3 years. Patient used Hormonal Contraceptives for 8 years. Paternal grandmother had breast cancer. Sister had breast cancer, age 60. Risk Values: Archana 5 year model risk: 3.7%. NCI Lifetime model risk: 7.9%. Prior Study Comparison: 12/12/2020 Bilateral Screening Mammogram, [facility]. 12/14/2021 Bilateral MG 3D screening mammo w/cad, [facility]. 12/15/2022 Bilateral MG 3D screening mammo w/cad, [facility]. Tissue Density: There are scattered areas of fibroglandular density. Findings: Analyzed By CAD. Right breast: There is no suspicious group of microcalcifications or new suspicious mass. Left breast: There is no suspicious group of microcalcifications or new suspicious mass. Overall Assessment: Negative, BI-RAD 1 Management: Screening Mammogram of both breasts in [address] [facility] will attempt to contact patient to return for supplemental views and ultrasound if indicated. Patient should continue monthly self-breast exams. A clinical breast exam by your physician is recommended on an annual basis. This exam should not preclude additional follow-up of suspicious palpable abnormalities. Note on Archana scores and lifetime risk: 1. A Archana score greater than 3% is considered moderate risk. If this is the case, consider specialist referral to assess eligibility for a risk reducing agent. 2. If overall lifetime risk for the development of breast cancer is 20% or higher, the patient may qualify for future screening with alternating mammogram and breast MRI. [facility], , 04/02/2024 7:53 AM. Electronically signed and approved by: Jarad Pantoja DO
== END | disposition home or self-care (01) ==
LOC: RADMAMWWP 13:30
PROVIDERS: ATTEND Family Medicine
DX: Z12.31 Encounter for screening mammogram for malignant neoplasm of breast (principal); Z90.722 Acquired absence of ovaries, bilateral; Z78.0 Asymptomatic menopausal state; Z80.3 Family history of malignant neoplasm of breast; R92.323 Mammographic fibroglandular density, bilateral breasts
CPT/HCPCS: 77063; 77067